=== PATIENT | female | born 1975 | race Two or more races ===

== ENCOUNTER → 2017-05-09 | Outpatient (CLI) | payer OTHER ==
--- NOTE | ~2017-05-09 | MY29 ---
[facility] A Service of [facility] & [facility] RADIOLOGY TEXT RESULTS PATIENT: BRYAN RAMESH LOCATION: [facility] : [birth year] UNIT #: [id number] AGE: [address]: MARILY TADEO APRN SEX: F ORDER DR: [id number] [facility] [address] [place], [place] [address] [id number] O MR#: [id number] Acc #: [id number] NAME: BRYAN RAMESH : 1975 SEX: F STUDY DATE/TIME: 05/09/2017 11:06 UNIT: [facility] ROOM: STUDY DESCRIPTION: MY STEVEN SCREENING W/ CAD BILAT Attending Physician: Isha Tadeo M.D. Ordering Physician: Isha Tadeo M.D. Primary Care Physician: Corona Barbour M.D. MEDICAL IMAGING REPORT This report is preliminary unless electronic signature is present EXAM Bilateral digital screening mammogram with CAD, 05/09/2017. HISTORY No personal family of history of breast cancer. No current complaints. COMPARISON None; this is patient's baseline study. FINDINGS CC and MLO views were obtained of each breast, utilizing digital technique, and reviewed with an FDA-approved CAD device. Scattered fibroglandular densities are present bilaterally, greatest in the subareolar regions. A focal asymmetry in the central third of the right breast along the posterior nipple line on the CC view measures 8 mm, lying about 5.4 cm deep to the nipple. It has no obvious MLO correlate. No architectural distortion or suspicious cluster of microcalcifications is seen. IMPRESSION Additional imaging required. 8-mm focal asymmetry is seen within the central third of the right breast, posterior nipple line on the CC view. No definite MLO correlate. True lateral view of the right breast for targeting purposes recommended, along with spot compression CC plane. If the density persists, diagnostic right breast ultrasound may be performed on this same day for complete evaluation. Patients over the age of 40 are entered into a reminder system with target due date for the next mammogram. A result letter will also be sent to the patient. [facility] A Service of [facility] & [facility] RADIOLOGY TEXT RESULTS PATIENT: BRYAN RAMESH LOCATION: [facility] : 71 UNIT #: [id number] AGE: [address]: MARILY TADEO APRN SEX: F ORDER DR: BIRADS: 0 Incomplete; need additional imaging evaluation and/or prior mammograms for comparison. Dictated by... Mirna Adams M.D. THIS IS AN ELECTRONICALLY VERIFIED REPORT Mirna Adams M.D. at 05/11/2017 8:49 AM NALINI/galo TD: 05/09/2017 16:10 JOB #: [id number] MEDICAL IMAGING REPORT Page 1 of 1 COPY
== END | disposition home or self-care (01) ==
LOC: CWCC 10:40
DX: Z12.31 Encounter for screening mammogram for malignant neoplasm of breast (principal); N64.89 Other specified disorders of breast
CPT/HCPCS: G0202

== ENCOUNTER → 2017-05-18 | Outpatient (CLI) | payer OTHER ==
--- NOTE | ~2017-05-18 | MY25 ---
[facility] A Service of [facility] & [facility] & [facility] RADIOLOGY TEXT RESULTS PATIENT: BRYAN RAMESH LOCATION: [facility] : 71 UNIT #: [id number] AGE: [address]: ERIN JORGE APRN SEX: F ORDER DR: [id number] [facility] [address] [place], [place] [address] [id number] O MR#: [id number] Acc #: [id number] NAME: BRYAN RAMESH : 1975 SEX: F STUDY DATE/TIME: 05/18/2017 12:40 UNIT: [facility] ROOM: STUDY DESCRIPTION: MY STEVEN STEEL W/ CAD UNI RT Attending Physician: Maciej Jorge Aprn Referring Physician: Corona Barbour M.D. Ordering Physician: Maciej Jorge Aprn Primary Care Physician: Corona Barbour M.D. MEDICAL IMAGING REPORT This report is preliminary unless electronic signature is present EXAM Additional views of the right breast and targeted right breast ultrasound, 05/18/2017. INDICATIONS 41-year-old female recalled for a baseline screening study demonstrating an asymmetry in the central right breast. The patient denies any abnormality. TECHNIQUE CC and true lateral views of the right breast were obtained and reviewed with an FDA-approved CAD device. Targeted ultrasound of the right breast was also performed. COMPARISON Comparison mammogram 05/09/2017. FINDINGS MAMMOGRAPHIC FINDINGS: Communication with the patient was facilitated throughout the patient encounter today by the patient's sister. The nodule in the central right breast persists on spot compression. It is not well demonstrated on the true lateral view, but appears to localize to the upper hemisphere. It has some features suggestive of a lymph node mammographically, but that is not definitive. Ultrasound was thereafter performed. ULTRASOUND FINDINGS: The patient was initially scanned independently by the technologist, and then rescanned in my presence. In the 12 o'clock position of the right breast biopsy, from the nipple, there is, what appears to represent a cluster of ducts or tiny cyst with interposed breast tissue between them. These span a distance of 5 x 4 x 5 mm and most likely corresponds with the mammographic finding. The imaging features are probably benign, and best STS. [facility] A Service of [facility] & [facility] & [facility] RADIOLOGY TEXT RESULTS PATIENT: BRYAN RAMESH LOCATION: [facility] : 71 UNIT #: [id number] AGE: [address]: ERIN JOREG APRN SEX: F ORDER DR: demonstrated under real-time surveillance in the ultrasound room. No suspicious shadowing although the margins are somewhat irregular. There is color flow within what appears to be interposed breast tissue. Although favored to represent a benign finding, follow up mammography and ultrasound in 6 months is recommended to document expected stability. If the area becomes larger or more suspicious on followup imaging then biopsy would be indicated at that point for further assessment. The patient was offered biopsy in lieu of 6-month follow up but the patient has elected for 6-month followup which is reasonable given imaging features. Findings and recommendations were discussed with the patient with the assistance of her sister as the negative assembler. She has voiced understanding and agreement. IMPRESSION 1. The nodule in the right breast mammographically has probably benign features and appears to correspond to a cluster of ducts or tiny cysts at 12 o'clock. Follow-up imaging with mammography and ultrasound in 6 months recommended to document expected stability. See discussion above. 2. BIRADS 3. Patients over the age of 40 are entered into a reminder system with target due date for the next mammogram. A result letter will also be sent to the patient. BIRADS: 3 Probably benign finding; short interval followup suggested. Dictated by... Dewayne Pyle M.D. THIS IS AN ELECTRONICALLY VERIFIED REPORT Dewayne Pyle M.D. at 05/18/2017 5:24 PM Yasmeen TD: 05/18/2017 15:15 JOB #: [id number] MEDICAL IMAGING REPORT Page 1 of 1 COPY
--- NOTE | ~2017-05-18 | US24 ---
[facility] A Service of [facility] RADIOLOGY TEXT RESULTS PATIENT: BRYAN RAMESH LOCATION: [facility] : 71 UNIT #: [id number] AGE: [address]: ERIN JORGE APRN SEX: F ORDER DR: [id number] [facility] [address] [place], [place] [address] [id number] O MR#: [id number] Acc #: [id number] NAME: BRYAN RAMESH : 1975 SEX: F STUDY DATE/TIME: 05/18/2017 12:44 UNIT: [facility] ROOM: STUDY DESCRIPTION: US Breast Unilateral Attending Physician: Maciej Jorge Aprn Referring Physician: Corona Barbour M.D. Ordering Physician: Maciej Jorge Aprn Primary Care Physician: Corona Barbour M.D. MEDICAL IMAGING REPORT This report is preliminary unless electronic signature is present EXAM Targeted ultrasound, right breast; 05/18/2017. INDICATIONS 41-year-old female recalled for a baseline screening study demonstrating an asymmetry in the central right breast. The patient denies any abnormality. TECHNIQUE CC and true lateral views of the right breast were obtained and reviewed with an FDA-approved CAD device. Targeted ultrasound of the right breast was also performed. COMPARISON Comparison mammogram 05/09/2017. FINDINGS ULTRASOUND FINDINGS: Please see additional views, right breast for results. Patients over the age of 40 are entered into a reminder system with target due date for the next mammogram. A result letter will also be sent to the patient. BIRADS: 3 Probably benign finding; short interval followup suggested. Dictated by... Dewayne Pyle M.D. THIS IS AN ELECTRONICALLY VERIFIED REPORT Dewayne Pyle M.D. at 05/18/2017 5:25 PM [facility] A Service of [facility] RADIOLOGY TEXT RESULTS PATIENT: BRYAN RAMESH LOCATION: [facility] : 71 UNIT #: [id number] AGE: [address]: ERIN JORGE APRN SEX: F ORDER DR: ALEKSANDER/prisca TD: 05/18/2017 15:29 JOB #: [id number] MEDICAL IMAGING REPORT Page 1 of 1 COPY
== END | disposition home or self-care (01) ==
LOC: CMAM 11:50
DX: N64.89 Other specified disorders of breast (principal); N63 Unspecified lump in breast
CPT/HCPCS: 76641; G0206